=== PATIENT | female | born 1950 | race Hispanic/Latino ===

== ENCOUNTER → 2018-12-15 | Outpatient (CLI) | payer OTHER | END | disposition home or self-care (01) | LOC: RAH 10:46 | PROVIDERS: ATTEND Family Medicine | DX: Z12.31 Encounter for screening mammogram for malignant neoplasm of breast (principal) | CPT/HCPCS: 77067 ==

== ENCOUNTER → 2020-05-04 | Outpatient (CLI) | payer OTHER | END | disposition home or self-care (01) | LOC: RAH 10:10 | PROVIDERS: ATTEND Family Medicine | DX: Z12.31 Encounter for screening mammogram for malignant neoplasm of breast (principal) | CPT/HCPCS: 77067 ==

== ENCOUNTER → 2022-05-10 | Outpatient (CLI) | payer OTHER | END | disposition home or self-care (01) | LOC: RAH 09:56 | PROVIDERS: ATTEND Family Medicine | DX: Z12.31 Encounter for screening mammogram for malignant neoplasm of breast (principal) | CPT/HCPCS: 77067 ==

== ENCOUNTER → 2023-05-15 | Outpatient (CLI) | payer OTHER | END | disposition home or self-care (01) | LOC: RAH 08:17 | PROVIDERS: ATTEND Family Medicine | DX: Z12.31 Encounter for screening mammogram for malignant neoplasm of breast (principal) | CPT/HCPCS: 77067 ==

== ENCOUNTER → 2023-07-31 | Outpatient (CLI) | payer OTHER | END | disposition home or self-care (01) | LOC: RAH 13:14 | PROVIDERS: ATTEND Family Medicine | DX: I11.9 Hypertensive heart disease without heart failure (principal); I05.9 Rheumatic mitral valve disease, unspecified; R06.02 Shortness of breath; R60.9 Edema, unspecified | CPT/HCPCS: 93306 ==

== ENCOUNTER 2023-12-25 16:56 | Observation (INO) | payer OTHER ==
[~2023-12-25] VITALS: Ht 154.9 cm; Wt 95.3 kg
[2023-12-25 17:49] LABS: BASOPHILS # (AUTO) 0.02 K/uL (0.00-0.20); BASOPHILS % (AUTO) 0.3 % (0.0-5.0); EOSINOPHILS # (AUTO) 0.29 K/uL (0.00-0.70); EOSINOPHILS % (AUTO) 4.9 % (0.0-8.0); IMMATURE GRANULOCYTE ABSOLUTE 0.01 K/uL (0-1); LYMPHOCYTES # (AUTO) 1.7 K/uL (1.0-4.8); MEAN CORPUSCULAR HEMOGLOBIN 15.7 pg (27.0-33.0); MEAN CORPUSCULAR HGB CONC 25.8 g/dL (32.0-36.0); MEAN CORPUSCULAR VOLUME 60.8 fL (79-99); MONOCYTES # (AUTO) 0.8 K/uL (0.1-1.0); MONOCYTES % (AUTO) 12.7 % (3.0-13.0); NEUTROPHILS # (AUTO) 3.1 K/uL (1.8-7.7); NEUTROPHILS % (AUTO) 52.9 % (40.0-77.0); PLATELET COUNT (AUTO) 278 K/uL (130-400); RED BLOOD CELL COUNT(AUTO) 3.95 MIL/uL (4.00-5.50); RED CELL DISTRIBUTION WIDTH 18.4 % (11.0-15.5); WHITE BLOOD COUNT (AUTO) 5.9 K/uL (4.8-10.8)
[2023-12-25 17:59] LABS: INR 1.06 (0.85-1.15); PROTHROMBIN TIME 11.4 SEC (9.6-11.6)
[2023-12-25 18:00] LABS: PARTIAL THROMBOPLASTIN TIME 25.4 SEC (26.3-35.5)
[2023-12-25 18:02] LABS: CREATININE 0.7 mg/dL (0.5-1.0); POTASSIUM 4.1 mmol/L (3.5-5.1)
[2023-12-25 18:04] LABS: B-TYPE NATRIURETIC PEPTIDE 84 pg/mL (0-100)
[2023-12-25 18:11] LABS: ALBUMIN 3.3 g/dL (3.5-5.0); BILIRUBIN,TOTAL 0.4 mg/dL (0.2-1.0); TOTAL PROTEIN, SERUM 7.2 g/dL (6.0-8.3)
[2023-12-25] MEDS: PANTOPRAZOLE 40 MG/VIAL IVP ONE (18:30)
[2023-12-25] MEDS: FUROSEMIDE 20MG VIAL IV ONE (18:30)
[2023-12-25 18:38] LABS: COVID19 (SARS ANTIGEN RAPID) PRESUMPTIVE NEGATIVE (NEGATIVE); INFLUENZA TYPE A Negative For Type A (NEGATIVE); INFLUENZA TYPE B Negative For Type B (NEGATIVE)
[2023-12-25] MEDS ORDERED: HYDRALAZINE 20MG/ML VIAL IV PRN (20:30)
[2023-12-25] MEDS ORDERED: DOCUSATE SODIUM 100 MG CAP PO PRN (20:30)
[2023-12-25] MEDS ORDERED: TEMAZEPAM 15 MG CAPSULE PO PRN (20:30)
[2023-12-25] MEDS ORDERED: LACTULOSE 20 GM/30 ML UDCUP PO PRN (20:30)
[2023-12-25] MEDS ORDERED: ACETAMINOPHEN 650 MG SUPPOSITORY RC PRN (20:30)
[2023-12-25 20:46] LABS: APPEARANCE,URINE CLEAR (CLEAR); BILIRUBIN,URINE NEGATIVE (NEGATIVE); COLOR,URINE LIGHT-YELLOW (YELLOW); GLUCOSE, URINE (UA) NEGATIVE (NEGATIVE); KETONES,URINE NEGATIVE (NEGATIVE); LEUKOCYTE ESTERASE ,URINE 500 Leu/uL (NEGATIVE); NITRATE,URINE NEGATIVE (NEGATIVE); OCCULT BLOOD,URINE NEGATIVE (NEGATIVE); PROTEIN,URINE NEGATIVE (NEGATIVE); UROBILINOGEN,URINE 0.2 mg/dL (0.2-1.0)
[2023-12-25 20:47] LABS: ADD UA MICROSCOPIC YES
[2023-12-25 20:49] LABS: MUCUS,URINE RARE LPF (None Seen); SQUAMOUS EPITHELIAL CELL,UR RARE /HPF (0-2); WBC,URINE 26-50 /HPF (0-1)
[2023-12-25] MEDS: INSULIN HUMULIN R 100 UNIT/ML 3ML SQ SCH (20:51)
[2023-12-25] MEDS: IPRATROPIUM/ALBUTEROL SULFATE 3 ML SOLUTION IH PRN (21:14)
[2023-12-25 21:15] VITALS: PULSE 79; RESP 18
[2023-12-25 21:16] VITALS: PULSE 79; RESP 18; O2SAT 99
[2023-12-26] VITALS (14 sets, daily range): BP systolic 104–153; BP diastolic 42–72; PULSE 73–85; RESP 14–49; O2SAT 97–100
[2023-12-26 00:52] LABS: BASOPHILS # (AUTO) 0.02 K/uL (0.00-0.20); BASOPHILS % (AUTO) 0.3 % (0.0-5.0); EOSINOPHILS # (AUTO) 0.29 K/uL (0.00-0.70); EOSINOPHILS % (AUTO) 4.5 % (0.0-8.0); HEMATOCRIT 26.2 % (36-48); IMMATURE GRANULOCYTE ABSOLUTE 0.01 K/uL (0-1); LYMPHOCYTES # (AUTO) 1.8 K/uL (1.0-4.8); LYMPHOCYTES % (AUTO) 28.5 % (21.0-51.0); MEAN CORPUSCULAR HEMOGLOBIN 17.3 pg (27.0-33.0); MEAN CORPUSCULAR HGB CONC 27.5 g/dL (32.0-36.0); MONOCYTES # (AUTO) 0.6 K/uL (0.1-1.0); NEUTROPHILS # (AUTO) 3.6 K/uL (1.8-7.7); NEUTROPHILS % (AUTO) 56.5 % (40.0-77.0); PLATELET COUNT (AUTO) 228 K/uL (130-400); RED BLOOD CELL COUNT(AUTO) 4.16 MIL/uL (4.00-5.50); RED CELL DISTRIBUTION WIDTH 20.7 % (11.0-15.5); WHITE BLOOD COUNT (AUTO) 6.4 K/uL (4.8-10.8)
[2023-12-26 04:10] LABS: BASOPHILS # (AUTO) 0.02 K/uL (0.00-0.20); BASOPHILS % (AUTO) 0.4 % (0.0-5.0); EOSINOPHILS # (AUTO) 0.27 K/uL (0.00-0.70); EOSINOPHILS % (AUTO) 4.8 % (0.0-8.0); HEMATOCRIT 27.5 % (36-48); IMMATURE GRANULOCYTE ABSOLUTE 0.02 K/uL (0-1); LYMPHOCYTES # (AUTO) 1.5 K/uL (1.0-4.8); LYMPHOCYTES % (AUTO) 27.2 % (21.0-51.0); MEAN CORPUSCULAR HEMOGLOBIN 16.5 pg (27.0-33.0); MEAN CORPUSCULAR HGB CONC 26.5 g/dL (32.0-36.0); MEAN CORPUSCULAR VOLUME 62.1 fL (79-99); MONOCYTES # (AUTO) 0.5 K/uL (0.1-1.0); NEUTROPHILS # (AUTO) 3.3 K/uL (1.8-7.7); NEUTROPHILS % (AUTO) 58.2 % (40.0-77.0); PLATELET COUNT (AUTO) 272 K/uL (130-400); RED BLOOD CELL COUNT(AUTO) 4.43 MIL/uL (4.00-5.50); RED CELL DISTRIBUTION WIDTH 20.4 % (11.0-15.5); WHITE BLOOD COUNT (AUTO) 5.7 K/uL (4.8-10.8)
[2023-12-26] MEDS ORDERED: LISI2.5T13 PO (04:38)
[2023-12-26] MEDS ORDERED: LEVO25TA54 PO (04:38)
[2023-12-26] MEDS ORDERED: NAPR-1196 PO (04:38)
[2023-12-26] MEDS ORDERED: GABA-529 PO (04:38)
[2023-12-26 04:46] LABS: CREATININE 0.7 mg/dL (0.5-1.0); PHOSPHORUS 2.9 mg/dL (2.5-4.9); POTASSIUM 3.8 mmol/L (3.5-5.1); THYROID STIMULATING HORMONE 2.86 uIU/mL (0.36-3.74)
[2023-12-26] MEDS: CEFTRIAXONE 2GM VIAL IVPB SCH (06:28)
[2023-12-26] MEDS: LEVOTHYROXINE 25 MCG TABLET PO SCH (07:44)
[2023-12-26] MEDS: LISINOPRIL 2.5 MG TABLET PO SCH (07:44)
[2023-12-26] MEDS: PANTOPRAZOLE 40 MG/VIAL IVP SCH (07:45)
[2023-12-26] MEDS: FUROSEMIDE 20MG VIAL IV SCH (07:45)
[2023-12-26 11:43] LABS: % IRON SATURATION 4.2 % (22-44)
[2023-12-26] MEDS: IRON SUCROSE COMPLEX 300 MG in 0.9% NACL 250ML 250 ML IV SCH (11:51)
[2023-12-26] MEDS: GABAPENTIN 100 MG CAPSULE PO SCH (11:52)
[2023-12-26] MEDS ORDERED: COMPOUND IV MISC 1 EACH IVSOLN MISC PRN (12:00)
[2023-12-26 12:28] LABS: RETICULOCYTE % (AUTO) 1.37 % (0.42-2.23)
[2023-12-26] MEDS: PEG 3350/NA SULF,BICARB,CL/KCL 4000 ML SOLN PO ONE (18:07)
[2023-12-26] MEDS ORDERED: GABAPENTIN 100 MG CAPSULE PO SCH (21:00)
[2023-12-27] VITALS (14 sets, daily range): BP systolic 102–147; BP diastolic 48–70; PULSE 82–100; RESP 16–20; O2SAT 96–98
[2023-12-27] MEDS: ACETAMINOPHEN 325 MG TAB PO PRN (00:45)
[2023-12-27] MEDS: POLYETHYLENE GLYCOL 3350 17 GM POWD.PACK PO SCH (07:07)
[2023-12-27] MEDS ORDERED: PROPOFOL 10 MG/ML 20ML VIAL IV ONE ×2 (08:05→08:34)
[2023-12-27] MEDS ORDERED: LIDOCAINE HCL 400MG/20ML VIAL ONE (08:06)
[2023-12-27] MEDS ORDERED: IRON SUCROSE COMPLEX 300 MG in 0.9% NACL 250ML 250 ML IV SCH (09:00)
[2023-12-27] MEDS: ONDANSETRON 4MG INJ IVP PRN (11:09)
[2023-12-27] MEDS ORDERED: FERR324T4 PO (15:59)
[2023-12-27] MEDS ORDERED: SUCR1ORA15 PO (15:59)
[2023-12-27] MEDS ORDERED: PANT40TA55 PO (15:59)
[2023-12-27] MEDS ORDERED: POLY119P2 PO (16:00)
[2023-12-27] MEDS ORDERED: SUCRALFATE 1 GM/10 ML PO SCH (21:00)
[2023-12-29] MEDS ORDERED: FERROUS SULFATE 325 MG TABLET.DR PO SCH (21:00)
== END 2023-12-27 16:30 | disposition home or self-care (01) ==
LOC: EDH 16:56 → EDHIP 20:07 → 2CH 12-26 03:47
PROVIDERS: ADMIT Internal Medicine; ATTEND Internal Medicine
DX: D50.9 Iron deficiency anemia, unspecified (principal); Z20.822 Contact with and (suspected) exposure to COVID-19; K29.70 Gastritis, unspecified, without bleeding; K22.89 Other specified disease of esophagus; K31.811 Angiodysplasia of stomach and duodenum with bleeding; I10 Essential (primary) hypertension; E03.9 Hypothyroidism, unspecified; R60.0 Localized edema; I51.7 Cardiomegaly; E78.5 Hyperlipidemia, unspecified; E66.01 Morbid (severe) obesity due to excess calories; Z68.41 Body mass index [BMI] 40.0-44.9, adult; Z79.899 Other long term (current) drug therapy
CPT/HCPCS: 36430; 96375 ×2; 99285; 82550; 83735 ×2; 84484; 80053; 83880; 85025 ×3; 85610; 85730; 86850; 86900; 86901; 86923; 87086 ×2; 87186; 87804 ×2; 87426; 82270; 81001; 36415 ×2; 71045; 93970; 93005; 94640; 96376 ×2; 96365; 96366 ×2; 96367; 84443; 83540; 83550; 84100; 80048; 82728; 85651; 85045; 82948 ×2; 82607; 82746; 86140; 74176; 88305; 88312; 43239; 43255; 45378; G0378 ×41; P9016; J0696 ×2; J1940 ×3; J1756; J2470 ×3; J7050; J3490; J2704 ×2; J2405; A4620; A4215; A4223; A4657 ×2; A4222; J7030; 94664